=== PATIENT | male | born 1960 | race African-American/Black ===

== ENCOUNTER 2017-02-08 12:48 | Inpatient (IN) | payer MEDICARE ==
--- NOTE | ~2017-02-08 | HP ---
Unit #: [id number] #: [id number] Patient: SEVEN JUÁREZ JR [id number] [place] [address] [id number] MR#: [id number] NAME: SEVEN JUÁREZ JR ROOM: P132 Age: 56 Sex: M Admission Date: 02/08/2017 : 1960 Attending Physician: Germán Munoz M.D. Admitting Physician: Germán Munoz M.D. Primary Care Physician: Primary Care Physician No HISTORY AND PHYSICAL HISTORY OF PRESENT ILLNESS Seven is a 56 year old admitted to [address] [place] [address] after reporting auditory hallucinations. He has had numerous admissions to this facility for the same. PAST MEDICAL HISTORY 1. COPD 2. GERD 3. Obesity 4. Hyperlipidemia PAST SURGICAL HISTORY 1. Cholecystectomy 2. Umbilical hernia repair 3. T & A 4. Pilonidal cyst resected 5. Testicular surgery, 2009 (?) ALLERGIES No known drug allergies. SOCIAL HISTORY Smokes at least one-half pack per day. Has a history of alcohol abuse but denies anything in months if not years. FAMILY HISTORY Medically noncontributory. REVIEW OF SYSTEMS CONSTITUTIONAL: No fever or chills. HEENT: Denies any sore throat, ear pain or runny nose. CARDIOVASCULAR: Denies chest pain, irregular heart rhythm or palpitations. CHEST: Denies shortness of breath or cough. No hemoptysis. GASTROINTESTINAL: Denies nausea, vomiting, diarrhea or chronic constipation. ENDOCRINE: Denies history of increased thirst or urination. No recent significant weight loss or gain. GENITOURINARY: Denies dysuria, frequency, or hematuria. SKIN: Denies any rashes. HEMATOLOGIC: Denies history of increased bleeding or bruising. MUSCULOSKELETAL: Denies any hot, swollen joints. No generalized muscle Unit #: [id number] #: [id number] Patient: SEVEN JUÁREZ JR pain. NEUROLOGIC: Denies problems with vision or speech. No frequent, severe headaches. No numbness, tingling or weakness in any extremities. Denies loss of bladder or bowel control. CURRENT MEDICATIONS 1. Milk of Magnesia p.r.n. 2. Maalox p.r.n. 3. Tylenol p.r.n. 4. Nicotine patch 14 mg daily PHYSICAL EXAMINATION GENERAL: Alert, well-nourished, in no apparent distress. VITAL SIGNS: Blood pressure 140/70, heart rate 70, respirations 16, temperature 98.6. WEIGHT: 226 pounds. HEIGHT: 5'6". SKIN: Warm and dry without rash or lesion. HEENT: Normocephalic. TMs not viewed. Oral and nasal passages clear. Conjunctivae clear. Pupils equal, round and reactive to light and accommodation. Extraocular movements intact. NECK: Supple without lymphadenopathy or thyromegaly. HEART: Regular rate and rhythm without murmur. LUNGS: Clear. ABDOMEN: Soft, nontender. : Not done. EXTREMITIES: No evidence of cyanosis, clubbing or edema. Moves all extremities without focal deficit. NEUROLOGICAL: Grossly within normal limits. Cranial Nerves: II: Visual fair are intact. III, IV AND : Extraocular movements are intact. Pupils are equal, round and reactive to light. V: Facial sensation is grossly normal. VII: Facial movements and expression are normal. VIII: Auditory acuity grossly intact. IX, X: Uvula is midline. Phonation is normal. XI: Patient shrugs shoulders and turns head normally. XII: Tongue protrudes in the midline. Sensory and Motor Function: Sensory and motor sensation is grossly normal. Motor: moves all extremities well. Coordination: Gait is normal. Deep Tendon Reflexes: Intact. IMPRESSION Psychiatric admission RECOMMENDATIONS PSYCHIATRIC: Per psychiatrist. MEDICAL: I see no contraindications to participating in facility's activities. MEDICAL PROGNOSIS Good. MEDICAL CONDITION Stable. Unit #: [id number] #: [id number] Patient: SEVEN JUÁREZ JR Dictated by... Cindy Sun P.A.-C. for Riya Vogel/cathy TD: 02/09/2017 03:35 JOB #: [id number] HISTORY AND PHYSICAL Page 1 of 1 X Cindy Sun HISTORY AND PHYSICAL
--- NOTE | ~2017-02-08 | DS ---
Unit #: [id number] #: [id number] Patient: SEVEN JUÁREZ JR [id number] [place] [address] [id number] I MR#: [id number] NAME: SEVEN JUÁREZ JR ROOM: 32 Age: 56 Sex: M Admission Date: 02/08/2017 : 1960 Discharge Date: 02/11/2017 Attending Physician: Germán Munoz M.D. Primary Care Physician: Primary Care Physician No DISCHARGE SUMMARY REASON FOR ADMISSION The patient is a 56-year-old single male, admitted with recurrence of auditory hallucinations after a period of medication noncompliance. HOSPITAL COURSE The patient was admitted to the [address] [place] [address] unit and placed on suicide precautions. He was restarted on Seroquel 200 mg at h.s., which he tolerated without complaint. He reported significant reduction in auditory hallucinations and by 02/11/2017, requested discharge from the hospital and it was so ordered. FINAL DIAGNOSIS Chronic paranoid schizophrenia. DISPOSITION ON DISCHARGE The patient is discharged on the following medications; Seroquel 200 mg at bedtime for psychosis. DISCHARGE INSTRUCTIONS No dietary or physical restrictions were placed upon the patient at the time of discharge. FOLLOWUP He will follow up through the auspices of community mental health and chemical dependency treatment resources. PROGNOSIS His prognosis is considered fair. Dictated by... Germán Munoz M.D. CB/nica TD: 02/11/2017 22:52 JOB #: [id number] Unit #: [id number] #: [id number] Patient: SEVEN JUÁREZ JR DISCHARGE SUMMARY Page 1 of 1 X Germán Munoz MD X DISCHARGE SUMMARY
--- NOTE | ~2017-02-08 | PA ---
Unit #: [id number] #: [id number] Patient: SEVEN JUÁREZ JR [id number] [place] [address] [id number] I MR#: [id number] NAME: SEVEN JUÁREZ JR ROOM: P132 Age: 56 Sex: M Admission Date: 02/08/2017 : 1960 Date of Assessment: 02/09/2017 Attending Physician: Germán Munoz M.D. Admitting Physician: Germán Munoz M.D. Primary Care Physician: Primary Care Physician No PSYCHIATRIC ASSESSMENT IDENTIFYING INFORMATION The patient is a 56-year-old male last admitted to this facility in 2014 under the care of this physician. He is readmitted after presenting to [facility] reporting increasing suicidal ideation and auditory hallucinations. INFORMANT(S) Patient. RELIABILITY Fair. CHIEF COMPLAINT I've been off my medicine. HISTORY OF PRESENT ILLNESS The patient is a 56-year-old male admitted to the [address] [place] [address] unit with worsening symptoms of depression, auditory hallucinations and suicidal ideation. The patient reports that he has been off medications for several months and reports that auditory hallucinations have increased. The patient was reporting suicidal ideation with plan to overdose on ibuprofen and Benadryl. The patient reports that he had previously been stable on 200 mg of Seroquel at h.s. but as noted previously has been off that medication for some time. PAST PSYCHIATRIC HISTORY The patient has a history of multiple previous hospitalizations and has been diagnosed with chronic paranoid schizophrenia. FAMILY HISTORY Noncontributory. SOCIAL HISTORY The patient lives alone in an apartment. He denies use of alcohol, tobacco or street drugs. MEDICAL HISTORY Patient suffers from GERD, asthma, COPD and carpal tunnel syndrome. MEDICATION HISTORY None at the time of admission. ALLERGIES Unit #: [id number] #: [id number] Patient: SEVEN JUÁREZ JR Seafood, fish, seasonal allergies. MENTAL STATUS EXAM At this time reveals the patient to be somewhat disheveled male appearing somewhat older than his stated age. He is in no apparent physical distress at the time of the examination. He is awake, alert, oriented in all spheres. His mood is mildly dysphoric. His affect is constricted. Speech is generally relevant and coherent. There are no gross deficits in memory or cognition noted. Intelligence is judged to be in the average range based on fund of knowledge. The patient is cooperative throughout the interview. He is currently reporting positive suicidal ideation. He denies homicidal ideation. He reports positive auditory hallucinations. His judgement and insight appear to be reasonably intact. ASSETS AND LIABILITIES Patient's assets, motivation for change. Liabilities, lack of resources. ADMITTING DIAGNOSES 1. Chronic paranoid schizophrenia. 2. Carpal tunnel syndrome. 3. Gastroesophageal reflux disease. 4. Chronic obstructive pulmonary disease. 5. Asthma. PSYCHIATRIC PLAN/TREATMENT GOALS The patient remains hospitalized for safety and stabilization. We will restart the patient's Seroquel initially at a dose of 100 mg at h.s. and suicide precautions are remain in place. ESTIMATED LENGTH OF STAY Three to five days with follow up to take place through the auspices of community mental health resources. Dictated by... Germán Munoz M.D. STU/francy TD: 02/09/2017 15:57 JOB #: [id number] PSYCHIATRIC ASSESSMENT Page 1 of 1 X Germán Munoz MD X PSYCHIATRIC ASSESSMENT
--- NOTE | ~2017-02-08 | PN ---
Unit #: [id number] #: [id number] Patient: SEVEN JUÁREZ JR [id number] [facility] [address] [place] [address] [id number] I MR#: [id number] NAME: SEVEN JUÁREZ JR ROOM: 32 Age: 56 Sex: M Admission Date: 02/08/2017 : 1960 Attending Physician: Germán Munoz M.D. Admitting Physician: Germán Munoz M.D. Primary Care Physician: Primary Care Physician Nakia DEE PROGRESS NOTES DATE 02/10/2017 DISCUSSION The patient is tolerating reinitiation of Seroquel without complaint. We will increase his dose to his accustomed home dose of 200 mg this evening. Dictated by... Germán Munoz M.D. CB/bzg TD: 02/10/2017 14:32 JOB #: [id number] LUIZ PROGRESS NOTES Page 1 of 1 X Germán Munoz MD X PROGRESS NOTE
[2017-02-09 09:34] LABS: HEMATOCRIT 44.4 % (38.0-50.0); HEMOGLOBIN 14.7 gm/dL (13.0-16.0); MEAN CELL VOLUME 94.2 FL (83-96); MEAN CORPUSCULAR HEMOGLOBIN 31.1 PG (28-34); RED BLOOD COUNT 4.72 X10e (3.90-5.60)
[2017-02-09 09:35] LABS: BASOPHIL# 0.1 X10e3 (0-0.3); BASOPHIL% 0.9 % (0-2.5); EOSINOPHIL# 0.2 X10e3 (0-0.7); EOSINOPHIL% 1.8 % (0.0-7.0); LYMPHOCYTE# 2.1 X10e3 (1.0-3.5); LYMPHOCYTE% 22.8 % (17.0-45.0); MEAN PLATELET VOLUME 9.2 FL (6.5-11.5); MONOCYTE# 0.6 X10e3 (0-1.0); MONOCYTE% 6.6 % (3.0-12.0); NEUTROPHIL# 6.1 X10e3 (1.5-7.1); NEUTROPHIL% 67.9 % (40-75); PLATELET COUNT 222 X10e3 (140-420); RED CELL DISTRIBUTION WIDTH 13.9 % (11.0-15.5)
[2017-02-09 09:40] LABS: DIFF IND NO
[2017-02-09 09:58] LABS: THYROID STIMULATING HORMONE 0.98 uIU/ml (0.34-5.60)
[2017-02-09 09:59] LABS: ALBUMIN SERUM 3.7 g/dL (3.5-5.0); BILIRUBIN,TOTAL 1.2 mg/dL (0.2-2.0); BUN/CREATININE RATIO 8.88; CALCIUM SERUM 9.8 mg/dL (8.4-10.2); CREATININE SERUM 0.9 mg/dL (0.6-1.4); GLOM FILT RATE Estimated 109.5 mL/min (>60); POTASSIUM 4.3 mmol/L (3.5-5.1); PROTEIN TOTAL SERUM 6.9 g/dL (6.0-8.3)
[2017-02-09 10:05] LABS: FREE THYROXIN (T4) 0.74 ng/dL (0.58-1.64)
== END 2017-02-11 18:03 | disposition home or self-care (01) | DRG 885 ==
LOC: P1S 12:48
PROVIDERS: Specialist
DX: F20.0 Paranoid schizophrenia (principal); J44.9 Chronic obstructive pulmonary disease, unspecified; G56.00 Carpal tunnel syndrome, unspecified upper limb; K21.9 Gastro-esophageal reflux disease without esophagitis; J45.909 Unspecified asthma, uncomplicated; E66.9 Obesity, unspecified; E78.5 Hyperlipidemia, unspecified; F17.210 Nicotine dependence, cigarettes, uncomplicated
CPT/HCPCS: 80053; 84439; 84443; 85025